=== PATIENT | male | born 1955 | race Asian ===

== ENCOUNTER 2019-11-09 10:16 | Emergency (ER) | payer MEDICAID, MEDICARE ==
[~2019-11-09] VITALS: Ht 162.6 cm; Wt 70.7 kg
[2019-11-09 10:20] VITALS: BP 133/70
--- NOTE | 2019-11-09 10:33 | NUR ---
pt changed into a gown, and is resting comfortably on an e.r. gurney. his son is at the bedside and has been the primary fish hatchery manager. [employer] to be accessed as needed.
--- NOTE | 2019-11-09 11:24 | NUR ---
PORTABLE XRAY COMPLETED
== END 2019-11-09 11:42 | disposition home or self-care (01) ==
LOC: ED 11:15
DX: J42 Unspecified chronic bronchitis (principal); H05.011 Cellulitis of right orbit; R07.9 Chest pain, unspecified
CPT/HCPCS: 71045; 99283